=== PATIENT | male | born 1980 | race Hispanic/Latino ===

== ENCOUNTER 2019-01-18 14:46 | Emergency (ER) | payer BC | END 2019-01-18 16:15 | disposition left against medical advice (07) | LOC: ERS 14:46 | DX: Z53.21 Procedure and treatment not carried out due to patient leaving prior to being seen by health care provider (principal) ==

== ENCOUNTER 2020-07-15 10:54 | Emergency (ER) | payer BC, SELFPAY ==
[~2020-07-15 10:54] MED LIST: Iopamidol-370 76% 500 ML 1 ML ONE
[2020-07-15 12:31] LABS: #Basophils 0.1 thou/uL (0.0-0.2); #Eosinphils 0.1 thou/uL (0.0-0.7); #Lymphocytes 1.9 thou/uL (1.20-3.40); #Monocytes 0.3 thou/uL (0.11-0.59); #Neutrophils 4.7 thou/uL (1.40-6.50); %Basophils 0.7 % (0.0-1.0); %Eosinophils 1.7 % (0.0-10.0); %Lymphocytes 27.2 % (21.0-51.0); %Monocytes 4.4 % (0.0-10.0); %Neutrophils 65.9 % (42.0-75.0); Hemoglobin 15.7 g/dL (14.0-18.0); Mean Corpuscular HGB CONC 36.1 g/dL (32.0-36.0); Mean Corpuscular Hemoglobin 33.7 pg (27.0-31.0); Mean Corpuscular Volume 93.1 fL (78.0-98.0); Platelet Count 209 thou/uL (130-400); RBC Distribution Width 12.4 % (11.5-14.5); Red Blood Cell (RBC) Count 4.66 mill/uL (4.70-6.10); White Blood Cell (WBC) Count 7.1 thou/uL (4.8-10.8)
[2020-07-15 12:41] LABS: Bacteria/HPF None Seen HPF (None Seen); Bilirubin 1+ (Negative); Blood, Urine Negative (Negative); Clarity Clear (Clear); Glucose, Urine (Dipstick) 50 mg/dL (Negative); Ketone, Urine Trace mg/dL (Negative); Leukocyte Negative Leu/uL (Negative); Mucous/LPF 2+ LPF (<2+); Nitrite Negative (Negative); Protein, Urine (Dipstick) 50 mg/dL (Neg-Trace); RBC/HPF 0-3 HPF (0-3); Specific Gravity, Urine 1.035 (1.002-1.036); Squamous Epithelial 0-3 HPF (0-3); Urobilinogen 3 mg/dL (Less than 2); WBC/HPF 0-3 HPF (0-3); pH, Urine 5.5 (5.0-9.0)
[2020-07-15 12:52] LABS: ALT (SGPT) 92 U/L (8-55); AST (SGOT) 45 U/L (5-34); Albumin 4.5 g/dL (3.5-5.0); Alkaline Phosphatase 68 U/L (40-110); Anion Gap 11 mmol/L (10-20); BUN (Urea Nitrogen) 16 mg/dL (8.9-20.6); Bilirubin, Total 0.9 mg/dL (0.2-1.2); Calc. Creatinine Clearance 0 mL/min (70-130); Calcium 9.3 mg/dL (7.8-10.44); Carbon Dioxide 31 mmol/L (22-29); Chloride 102 mmol/L (98-107); Estimated GFR-MDRD 61; Globulin 2.7 g/dL (2.4-3.5); Glucose 80 mg/dL (70-105); Lipase 44 U/L (8-78); Magnesium 2.2 mg/dL (1.6-2.6); Potassium 3.8 mmol/L (3.5-5.1); Protein, Total 7.2 g/dL (6.0-8.3); Sodium 140 mmol/L (136-145)
--- NOTE | 2020-07-15 14:24 | CT ---
CT ABDOMEN AND PELVIS WITH IV CONTRAST: 07/15/20 INDICATIONS: Nausea, vomiting. Known pancreatic mass. History states that patient was diagnosed with pancreatic ma ss in [place] and was told he would need follow-up imaging. He has not had follow-up imaging since the diagnosis which was made in December 2018. Comparison made to a prior CT from 2010. FINDINGS: The lung bases are clear. The liver and spleen unremarkable. Stomach and duodenum unremarkable. There is a low density mass involving the head of the pancreas which measures up to 4 cm AP dimension . Correlation with the prior CT would be necessary to determinate interval change. The adrenal glands and kidneys are unremarkable. Small bowel loops are normal caliber. Appendix appears normal. The colon is unremarkable. Aorta normal caliber. No adenopathy identified. No free fluid. Osseous structures unremarkable. IMPRESSION: 1. There is a 4 cm low density mass involving the head of the pancreas and uncinate process of t he pancreas. This corresponds to known history of pancreatic mass. Correlation with old films is nece ssary to assess interval change. 2. Otherwise no evidence of acute process. POS: [facility]
== END 2020-07-15 16:40 | disposition home or self-care (01) ==
LOC: ERS 10:54
DX: E86.0 Dehydration (principal); K86.89 Other specified diseases of pancreas; F17.210 Nicotine dependence, cigarettes, uncomplicated
CPT/HCPCS: 36415; 74177; 80053; 81003; 81015; 83690; 83735; 85025; 96360; 96361; Q9967